=== PATIENT | male | born 2000 | race African-American/Black ===

== ENCOUNTER 2020-02-22 10:24 | Emergency (ER) | payer MEDICAID, OTHER ==
[~2020-02-22] VITALS: Ht 177.8 cm; Wt 83.9 kg
--- NOTE | 2020-02-22 10:24 | NUR ---
ED Nurse Note: Patient BIBA from work d/t 05/24 aching abdominal pain. Currently patient has no complaint of pain. 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 Patient calm and cooperative.
[2020-02-22 10:26] VITALS: BP_SYST 122; BP_SYST 141; BP_DIAS 72; BP_DIAS 88
--- NOTE | 2020-02-22 10:30 | NUR ---
ED Nurse Note: Blood collected and sent to lab
--- NOTE | 2020-02-22 10:41 | NUR ---
ED Nurse Note: Patient taken to Xray
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
--- NOTE | 2020-02-22 11:05 | NUR ---
ED Nurse Note: Patient returned from xray
[2020-02-22 11:07] LABS: ANION GAP 13 mmol/L (5-15); BLOOD UREA NITROGEN 7 mg/dL (7-18); CALCIUM 9.2 MG/DL (8.5-10.1); CARBON DIOXIDE 22 MMOL/L (21-32); CHLORIDE 103 MMOL/L (98-107); CREATININE 1.3 MG/DL (0.55-1.30); SODIUM 138 MMOL/L (136-145)
[2020-02-22 11:08] LABS: BASOPHILS % (AUTO) 1.1 % (0.0-2.0); EOSINOPHILS % (AUTO) 0.2 % (0.0-3.0); LYMPHOCYTES % (AUTO) 14.3 % (20.0-45.0); MEAN CORPUSCULAR VOLUME 88 FL (80-99); MONOCYTES % (AUTO) 7.9 % (1.0-10.0); NEUTROPHILS % (AUTO) 76.5 % (45.0-75.0); PLATELET COUNT 276 K/UL (150-450); RED BLOOD COUNT 5.79 M/UL (4.70-6.10); RED CELL DISTRIBUTION WIDTH 12.4 % (11.6-14.8); WHITE BLOOD COUNT 11.5 K/UL (4.8-10.8)
[2020-02-22 11:11] LABS: ALANINE AMINOTRANSFERASE 26 U/L (12-78); ALBUMIN 4.5 G/DL (3.4-5.0); ALBUMIN/GLOBULIN RATIO 1.1 (1.0-2.7); ALKALINE PHOSPHATASE 79 U/L (46-116); ASPARTATE AMINO TRANSFERASE 23 U/L (15-37); BILIRUBIN,TOTAL 0.7 MG/DL (0.2-1.0)
[2020-02-22 11:14] LABS: INR 1.1 (0.9-1.1)
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
[2020-02-22 12:05] LABS: APPEARANCE,URINE CLEAR; BILIRUBIN, URINE NEGATIVE (NEGATIVE); COLOR,URINE BROWN; GLUCOSE, URINE (UA) NEGATIVE (NEGATIVE); KETONES,URINE 1+ (NEGATIVE); LEUKOCYTE ESTERASE ,URINE 1+ (NEGATIVE); NITRITE,URINE NEGATIVE (NEGATIVE); PH,URINE 6 (4.5-8.0); PROTEIN,URINE NEGATIVE (NEGATIVE); UROBILINOGEN,URINE 4 MG/DL (0.0-1.0)
[2020-02-22 12:25] VITALS: BP 138/75
--- NOTE | 2020-02-22 12:25 | NUR ---
ER DISCHARGE NOTE: Patient is cleared to be discharged per ERMD, pt is aox4, on room air, with stable vital signs. pt was given dc and prescription instructions, pt was able to verbalize understanding, pt id band and iv site removed without complications. pt is able to ambulate with steady gait. pt took all belongings.
== END 2020-02-22 12:25 | disposition home or self-care (01) ==
LOC: EDBD 10:24 → EMR 10:35
DX: R10.9 Unspecified abdominal pain (principal); F31.9 Bipolar disorder, unspecified; F20.9 Schizophrenia, unspecified; E66.9 Obesity, unspecified
CPT/HCPCS: 36415; 74018; 80053; 80307; 81003; 83690; 85025; 85610; 85730; G0480; Z7502; 99284